=== PATIENT | male | born 1980 | race Caucasian/White ===

== ENCOUNTER 2020-12-02 02:30 | Emergency (ER) | payer OTHER ==
[~2020-12-02] VITALS: Ht 195.6 cm; Wt 104.3 kg
[2020-12-02 02:43] VITALS: BP 129/84
== END 2020-12-02 05:14 | disposition left against medical advice (07) ==
LOC: EDBD 02:30 → ER 02:30
DX: F10.129 Alcohol abuse with intoxication, unspecified (principal); Z53.21 Procedure and treatment not carried out due to patient leaving prior to being seen by health care provider; Z90.89 Acquired absence of other organs